=== PATIENT | male | born 1990 | race Hispanic/Latino ===

== ENCOUNTER 2018-12-31 17:57 | Emergency (ER) | payer SELFPAY ==
[~2018-12-31] VITALS: Ht 180.3 cm; Wt 93.7 kg
[2018-12-31] MEDS ORDERED: ACET650T15 PO (18:02)
[2018-12-31] MEDS ORDERED: BENZOCAINE 20% GEL 9GM TUBE (ANBESOL MAX STRENGTH) TOP ONE (18:45)
[2018-12-31] MEDS ORDERED: ARTICAINE HCL/EPINEPHRINE 4%-1:200,000 1.7ML INJ (SEPTOCAINE) SM ONE (18:45)
[2018-12-31 18:56] LABS: BASO % 0.3 % (0.0-1.0); EOS # 0.1 10^3/uL (0.0-0.5); EOS % 0.8 % (0.0-3.0); HEMATOCRIT 44.9 % (42.0-52.0); HEMOGLOBIN 15.2 g/dl (13.5-17.5); LYMPH # 2.4 10^3/uL (1.5-5.0); LYMPH % 18.1 % (24.0-44.0); MEAN CORPUSCULAR HEMOGLOBIN 29.7 pg (27.0-33.0); MEAN CORPUSCULAR HGB CONC 33.9 g/dl (32.0-36.5); MEAN CORPUSCULAR VOLUME 87.9 fl (80.0-96.0); MONO # 0.9 10^3/uL (0.0-0.8); MONO % 6.5 % (0.0-5.0); NEUTROPHILS # 9.7 10^3/uL (1.5-8.5); NEUTROPHILS % 73.8 % (36.0-66.0); PLATELET COUNT, AUTOMATED 297 10^3/uL (150-450); RED BLOOD COUNT 5.11 10^6/uL (4.30-6.10); WHITE BLOOD COUNT 13.1 10^3/uL (4.0-10.0)
[2018-12-31] MEDS ORDERED: AUGM875T28 PO (19:34)
[2018-12-31 19:39] VITALS: BP 135/65
== END 2018-12-31 19:43 | disposition home or self-care (01) ==
LOC: M ED 17:57
DX: K01.1 Impacted teeth (principal); K02.9 Dental caries, unspecified; D72.829 Elevated white blood cell count, unspecified